=== PATIENT | female | born 1950 | race Caucasian/White ===

== ENCOUNTER → 2018-09-18 | Outpatient (CLI) | payer BC ==
--- NOTE | 2018-09-19 13:24 | MM ---
Reason for exam: screening (asymptomatic). Last mammogram was performed 1 year and 11 months ago. History: Patient is postmenopausal, history of other cancer, and had first child at age 41. Physical Findings: A clinical breast exam by your physician is recommended on an annual basis and results should be correlated with mammographic findings. MG 3D Screening Mammo W/Cad Bilateral CC and MLO view(s) were taken. Prior study comparison: October 11, 2016, bilateral MG screening mammo w CAD. November 13, 2013, bilateral digital screening mammo w/CAD. The breast tissue is heterogeneously dense. This may lower the sensitivity of mammography. There is no discrete abnormality. No significant changes when compared with prior studies. ASSESSMENT: Negative, BI-RAD 1 RECOMMENDATION: Routine screening mammogram of both breasts in 1 year.
== END | disposition home or self-care (01) ==
LOC: RADMAMWWP 14:44
PROVIDERS: ATTEND Obstetrics & Gynecology
DX: Z12.31 Encounter for screening mammogram for malignant neoplasm of breast (principal)
CPT/HCPCS: 77063; 77067

== ENCOUNTER → 2020-01-27 | Outpatient (CLI) | payer BC ==
--- NOTE | 2020-01-28 11:20 | MM ---
Reason for exam: screening (asymptomatic). Last mammogram was performed 1 year and 4 months ago. History: Patient is postmenopausal, history of other cancer, and had first child at age 41. Physical Findings: A clinical breast exam by your physician is recommended on an annual basis and results should be correlated with mammographic findings. MG 3D Screening Mammo W/Cad Bilateral CC and MLO view(s) were taken. Prior study comparison: September 18, 2018, bilateral MG 3d screening mammo w/cad. October 11, 2016, bilateral MG screening mammo w CAD. The breast tissue is heterogeneously dense. This may lower the sensitivity of mammography. There is no discrete abnormality. ASSESSMENT: Negative, BI-RAD 1 RECOMMENDATION: Routine screening mammogram of both breasts in 1 year.
== END | disposition home or self-care (01) ==
LOC: RADMAMWWP 10:52
PROVIDERS: ATTEND Obstetrics & Gynecology
DX: Z12.31 Encounter for screening mammogram for malignant neoplasm of breast (principal)
CPT/HCPCS: 77063; 77067

== ENCOUNTER → 2021-09-23 | Outpatient (CLI) | payer MEDICARE ==
--- NOTE | 2021-09-27 08:04 | MM ---
Reason for exam: screening (asymptomatic). Last mammogram was performed 1 year and 8 months ago. History: Patient is postmenopausal, history of other cancer, and had first child at age 41. Taking other hormone for 3 months. Physical Findings: A clinical breast exam by your physician is recommended on an annual basis and results should be correlated with mammographic findings. MG 3D Screening Mammo W/Cad Bilateral CC and MLO view(s) were taken. Prior study comparison: January 27, 2020, bilateral MG 3d screening mammo w/cad. September 18, 2018, bilateral MG 3d screening mammo w/cad. October 11, 2016, bilateral MG screening mammo w CAD. The breast tissue is heterogeneously dense. This may lower the sensitivity of mammography. No significant changes when compared with prior studies. ASSESSMENT: Negative, BI-RAD 1 RECOMMENDATION: Routine screening mammogram of both breasts in 1 year.
== END | disposition home or self-care (01) ==
LOC: RADMAMWWP 16:13
PROVIDERS: ATTEND Family Medicine
DX: Z12.31 Encounter for screening mammogram for malignant neoplasm of breast (principal)
CPT/HCPCS: 77063; 77067

== ENCOUNTER → 2021-11-23 | Outpatient (CLI) | payer MEDICARE ==
--- NOTE | 2021-11-23 10:17 | XR ---
EXAMINATION TYPE: XR cervical spine comp DATE OF EXAM: 11/23/2021 CLINICAL HISTORY: pain COMPARISON: NONE TECHNIQUE: Frontal, lateral, oblique, swimmers, and open mouth view of the cervical spine are obtaine d. FINDINGS: The cervical spine is visualized in its entirety from C1 thru the top of T1 level. It is s atisfactory in alignment without evidence of acute fracture or dislocation. The pre-vertebral soft t issue appears within normal limits. Moderate to severe degenerative disc space narrowing C3-4 through C6-7. Ventral and dorsal spondylosis noted. The C1-C2 articulation is unremarkable on the open mouth view. The oblique images are within normal limits. IMPRESSION: No acute fracture or dislocation is seen in the cervical spine.ICD 10 NO FRACTURE, INITI AL EVALUATION
== END | disposition home or self-care (01) ==
LOC: RADXRMAIN 09:48
PROVIDERS: ATTEND Family Medicine
DX: M54.2 Cervicalgia (principal)
CPT/HCPCS: 72050

== ENCOUNTER 2021-12-01 09:21 | Day surgery (SDC) | payer MEDICARE ==
[2021-11-28 13:55] VITALS: BMI 24.7
[~2021-12-01 09:21] MED LIST: LACTATED RINGERS 1,000 ML IV SCH; LIDOCAINE 1% (10MG/ML) FOR IV START INTRADERMA PRN
[2021-12-01 10:29] VITALS: TEMP 98.4
[2021-12-01] MEDS ORDERED: PROPOFOL 10 MG/ML 20 ML VIAL IV ONE (11:05)
[2021-12-01] MEDS ORDERED: LIDOCAINE 1% INJ 10MG/ML (20 ML MDV) ONE (11:05)
--- NOTE | 2021-12-01 11:07 | P.GSHP ---
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 Patient has a positive colon guard test. She denies any significant GI complaints. Past Medical History Additional Past Medical History / Comment(s): DYSPHAGIA, BRONCHITS, KIDNEY STONE History of Any Multi-Drug Resistant Organisms: None Reported Past Surgical History: Tonsillectomy Additional Past Surgical History / Comment(s): RIGHT ARTHROTOMY, SINUS SURGERY, LAPAROSCOPIC SURGERY X2 Past Anesthesia/Blood Transfusion Reactions: Postoperative Nausea & Vomiting (PONV) Smoking Status: Former smoker - Past Family History Father Family Medical History: Cancer Medications and Allergies Home Medications Medication Instructions Recorded Confirmed Type Acetaminophen Tab [Tylenol Tab] 500 - 1,000 mg PO Q6H PRN 11/28/21 12/01/21 History Calcium Carbonate/Vitamin D3 2 each PO BID 11/28/21 12/01/21 History [Calcium 600 mg-D3 20 mcg (800 unit)] Cetirizine HCl [Zyrtec] 10 mg PO HS 11/28/21 12/01/21 History Cyclobenzaprine [Flexeril] 10 mg PO DAILY PRN 11/28/21 12/01/21 History Multivitamin [Multivitamins Adult 1 each PO DAILY 11/28/21 12/01/21 History Gummies] Allergies Allergy/AdvReac Type Severity Reaction Status Date / Time Milk Containing Products Allergy Rash/Hives, Verified 12/01/21 10:19 [Dairy] MIGRAINE HEADACHE,VOMITING SINUS INFECTION mold Allergy Unknown Verified 12/01/21 10:19 tree nut Allergy Anaphylaxis Verified 12/01/21 10:19 EGG WHITES Allergy Rash, Uncoded 12/01/21 10:19 migraine headache , sinus infection, vomiting Surgical - Exam Vital Signs Temp Pulse Resp BP Pulse Ox 98.4 F 69 16 153/88 100 12/01/21 10:27 12/01/21 10:27 12/01/21 10:27 12/01/21 10:27 12/01/21 10:27 - General well developed, well nourished, no distress - Eyes PERRL - ENT normal pinna - Neck no masses - Respiratory normal expansion - Cardiovascular Rhythm: regular - Abdomen Abdomen: soft, non tender Assessment and Plan Assessment: Positive colon guard test. We'll perform colonoscopy.
--- NOTE | 2021-12-01 11:30 | P.OP ---
Date of Procedure: 12/01/21 Preoperative Diagnosis: Positive colon guard test Postoperative Diagnosis: Rectal polyp Procedure(s) Performed: Colonoscopy Anesthesia: MAC Surgeon: Shahzad Minor Pathology: other (Rectal polyp) Condition: stable Disposition: PACU Description of Procedure: Patient's placed on the endoscopy table in the lateral position. She received IV sedation. Digital rectal exam was performed which revealed no abnormalities. The flexible colonoscope was then placed patient anus passed rotator colon. The ileocecal valve visualized and tortuous about. The right colon appeared normal. Transverse colon appeared normal. The descending colon appeared normal. Sigmoid colon was a few scattered diverticula. In the rectum there was a polyp seen this removed with snare. Scope was withdrawn for patient.
[2021-12-01 12:19] VITALS: BP 118/78; PULSE 82; RESP 18
== END 2021-12-01 12:20 | disposition home or self-care (01) ==
LOC: ORWHC2ENDO 09:21
PROVIDERS: ATTEND Surgery
DX: K62.1 Rectal polyp (principal); Z87.891 Personal history of nicotine dependence; Z80.9 Family history of malignant neoplasm, unspecified
CPT/HCPCS: 45385; 88305; J2001; J2704

== ENCOUNTER → 2022-08-24 | Outpatient (CLI) | payer MEDICARE ==
--- NOTE | 2022-08-25 06:05 | MR ---
EXAMINATION TYPE: MR knee LT wo con DATE OF EXAM: 08/24/2022 COMPARISON: Outside right knee x-ray August 22, 2022 HISTORY: Right knee pain and swelling, history of prior surgery TECHNIQUE: Multiplanar, multisequence imaging of the right knee is performed without IV contrast. FINDINGS: MEDIAL MENISCUS: Some increased linear horizontal signal centrally in the posterior horn does not ext end to articular surface. LATERAL MENISCUS: Vertical oriented increased signal anterior horn extends to articular surface sagit mark image 7. CRUCIATE LIGAMENTS: The posterior cruciate ligament is intact and unremarkable. Increased signal thro ughout the anterior cruciate ligament COLLATERAL LIGAMENTS: The medial collateral ligament and lateral collateral ligament complex are inta ct and unremarkable. EXTENSOR MECHANISM: Visualized quadriceps and patellar tendons are intact. EFFUSION: Small to moderate size suprapatellar joint effusion. POPLITEAL CYST: Small size popliteal/morales cyst. TRICOMPARTMENT SPACES: Moderate to severe narrowing patellofemoral and medial tibiofemoral compartmen ts. Mild tricompartmental spurring. CARTILAGE: Significant chondromalacia patella with diffuse cartilaginous loss along posterior patella r pole and areas of full-thickness cartilaginous loss seen. Cartilaginous loss medial tibiofemoral co mpartment also identified. BONE MARROW SIGNAL: Areas of heterogeneous diminished T1 and increased T2 signal inferior lateral pat benita as site of most prominent patellofemoral compartment joint space loss with some increased T2 sig nal in the adjacent anterior lateral femoral condyle. Subchondral cystic change and reactive edema is favored. There is serpiginous low T1 signal in the medial tibial plateau coronal image 18 and sagittal image 2 0 measuring 1.8 cm in length with surrounding T2 hyperintensity consistent with subchondral fracture injury and associated surrounding osseous edema. OTHER: No additional significant abnormality is appreciated. IMPRESSION: 1. Full thickness vertical tear anterior horn lateral meniscus. 2. Moderate to severe patellofemoral and medial tibiofemoral joint degenerative changes as detailed a anika. 3. Subchondral deficiency fracture medial tibial plateau with surrounding osseous edema. 4. Small to moderate size suprapatellar joint effusion. 5. Intrasubstance tear posterior horn medial meniscus. 6. Small sized popliteal cyst. 7. Partial tearing of the anterior cruciate ligament. 4.
== END | disposition home or self-care (01) ==
LOC: RADMRIMAIN 15:51
PROVIDERS: ATTEND Orthopaedic Surgery
DX: S82.132A Displaced fracture of medial condyle of left tibia, initial encounter for closed fracture (principal); M23.242 Derangement of anterior horn of lateral meniscus due to old tear or injury, left knee

== ENCOUNTER → 2022-10-31 | Outpatient (CLI) | payer MEDICARE ==
--- NOTE | 2022-11-01 09:18 | MM ---
Reason for Exam: Screening (asymptomatic). Last mammogram was performed 1 year(s) and 2 month(s) ago. Patient History: Menarche at age 14. First Full-Term at age 41. Late child-bearing (after 30). Postmenopausal. Risk Values: Piper 5 year model risk: 2.4%. NCI Lifetime model risk: 7.3%. Prior Study Comparison: 09/18/2018 Bilateral Screening Mammogram, [facility]. 01/27/2020 Bilateral Screening Mammogram, [facility]. 09/23/2021 Bilateral Screening Mammogram, [facility]. Tissue Density: The breast tissue is heterogeneously dense. This may lower the sensitivity of mammography. Findings: Analyzed By CAD. Benign-appearing bilateral axillary lymph nodes are redemonstrated. There is no suspicious new group of microcalcifications or new suspicious mass in either breast. Overall Assessment: Negative, BI-RAD 1 Management: Screening Mammogram of both breasts in 1 year. Some advise bilateral breast ultrasound surveillance in patients with background dense tissue. A clinical breast exam by your physician is recommended on an annual basis and results should be correlated with mammographic findings. Electronically signed and approved by: Mainor Peterson M.D.
== END | disposition home or self-care (01) ==
LOC: RADMAMWWP 15:37
PROVIDERS: ATTEND Family Medicine
DX: Z12.31 Encounter for screening mammogram for malignant neoplasm of breast (principal); Z78.0 Asymptomatic menopausal state
CPT/HCPCS: 77063; 77067

== ENCOUNTER → 2022-10-31 | Outpatient (CLI) | payer MEDICARE ==
[2022-10-31 22:46] LABS: Anion Gap 11.6 mmol/L (10.00-18.00); Carbon Dioxide 27.6 mmol/L (20.0-27.5); Potassium 4.1 mmol/L (3.5-5.5)
[2022-10-31 22:48] LABS: Basophils # (A) 0.05 X 10*3/uL (0.00-0.10); Basophils % (A) 0.6 %; Eosinophils # (A) 0.05 X 10*3/uL (0.04-0.35); Eosinophils % (A) 0.6 %; HCT 43.6 % (37.2-46.3); Immature Grans, Automated 0.4 %; Lymphocytes # (A) 1.54 X 10*3/uL (0.90-5.00); Lymphocytes % (A) 18.7 %; MCH 29.9 pg (27.0-32.0); MCHC 32.1 g/dL (32.0-37.0); Mean Platelet Volume 10.1 fL (9.5-12.2); Monocytes # (A) 0.42 X 10*3/uL (0.20-1.00); Monocytes % (A) 5.1 %; NRBC Per 100 WBC 0 /100 WBCS (0.0-0.0); Neutrophils # (A) 6.13 X 10*3/uL (1.80-7.70); Neutrophils % (A) 74.6 %; Platelet Count 230 X 10*3/uL (140-440); RBC 4.69 X 10*6/uL (4.10-5.20); WBC 8.22 X 10*3/uL (4.50-10.00)
== END | disposition home or self-care (01) ==
LOC: LABPAT 14:48
PROVIDERS: ATTEND Orthopaedic Surgery
DX: Z01.818 Encounter for other preprocedural examination (principal); I44.4 Left anterior fascicular block; M23.92 Unspecified internal derangement of left knee; R94.31 Abnormal electrocardiogram [ECG] [EKG]
CPT/HCPCS: 80051; 85025; 93005

== ENCOUNTER → 2022-11-08 | Day surgery (SDC) | payer MEDICARE ==
[2022-11-03 14:03] VITALS: BMI 22.8
[~2022-11-08] MED LIST changes: +BUPIVACAINE (PF) 0.25% 30 ML VIAL SQ ONE; +DEXAMETHASONE SOD PHOSPHATE 4 MG/ML 1 ML VIAL IV ONE; +DEXAMETHASONE SOD PHOSPHATE 4 MG/ML 1 ML VIAL IVP ONE; +HYDROmorphone 0.5 MG/0.5 ML SYRINGE IVP PRN; +LACTATED RINGERS 1,000 ML IV ONE; +LIDOCAINE 2% INJ 20 MG/ML (2 ML VIAL) ONE; +MIDAZOLAM 2 MG/2 ML VIAL IV PRN; +MIDAZOLAM 2 MG/2 ML VIAL ONE; +ONDANSETRON 4 MG/2 ML VIAL IVP ONE; +PHENYLEPHRINE-0.9% NACL SYG 1,000 MCG/10 ML SYRINGE ONE; +SUCCINYLCHOLINE CHLORIDE 200 MG/10 ML VIAL IV ONE; +fentaNYL (PF) 50 MCG/ML 2 ML AMP ONE
--- NOTE | 2022-11-08 01:43 | HP ---
HISTORY AND PHYSICAL DATE OF SURGERY: 11/08/2022 HISTORY OF PRESENT ILLNESS: Anuradha Ramos is a 72-year-old patient seen with progressive left knee pain. After having treatment options discussed, she elected to proceed with left knee arthroscopy. Consent was obtained. PAST MEDICAL HISTORY: Noncontributory. SURGICAL HISTORY: Carpal tunnel surgery, knee arthroscopy, tonsillectomy, sinus surgery. DAILY MEDICATIONS: 1. Motrin. 2. Zyrtec. ALLERGIES: None. SOCIAL HISTORY: She denies tobacco use. PHYSICAL EVALUATION OF THE LEFT KNEE: Her range of motion is 0-130. Mild effusion. Tenderness along the medial and lateral joint lines. Positive medial Danuta's. Positive lateral Danuta's. Ligaments stable. Hip rotation without pain. Distal neurovascular exam intact. RADIOGRAPHS: Right knee radiographs revealed mild to medial and moderate patellofemoral compartment osteoarthritis. MRI left knee revealed a lateral meniscal tear, effusion, and osteoarthritic changes. IMPRESSION: Internal derangement of left knee with lateral meniscal tear. PLAN: Left knee arthroscopy with partial lateral meniscectomy and debridement. MMODL / IJN: [id number] /
--- NOTE | 2022-11-08 12:19 | P.OP ---
Date of Procedure: 11/08/22 Preoperative Diagnosis: Internal derangement left knee Postoperative Diagnosis: 1. Tear medial and lateral meniscus left knee 2. Grade 2/3 chondromalacia medial femoral condyle left knee 3. Reactive synovitis medial, lateral and suprapatellar compartments left knee Procedure(s) Performed: 1. Arthroscopic partial medial and lateral meniscectomy left knee 2. Arthroscopic chondroplasty medial femoral condyle left knee 3. Arthroscopic partial synovectomy medial, lateral and suprapatellar compartments left knee Anesthesia: KALEYA, local Surgeon: Gael Balderas Estimated Blood Loss (ml): 7 Pathology: none sent Condition: stable Disposition: PACU Indications for Procedure: 72-year-old patient seen with progressive left knee pain. After having treatment options discussed, she elected to proceed with arthroscopy. Operative Findings: See description of procedure Description of Procedure: Patient was taken to the operative suite. Patient underwent a general anesthetic by the department of anesthesia. Patient was given preoperative antibiotics. The left lower extremity was placed in a well-padded arthroscopic leg stroud. The left leg was prepped and draped in the normal sterile orthopedic fashion. A lateral parapatellar and suprapatellar incision was made. Trochars were inserted. Arthroscopy was initiated. Suprapatellar pouch revealed diffuse thick reactive synovitis. The patellofemoral joint appeared to articulate congruently. There was grade 2 chondromalacia of the patella without osteochondral tears being present. The scope was guided into the medial gutter. No loose bodies or plica were identified. The scope was then guided into the medial compartment. A medial parapatellar incision was made. Trocar inserted followed by probe. There was a tear involving the posterior horn of the medial meniscus at the root. There was an area of grade 2/3 chondromalacia medial femoral condyle with some osteochondral flap tears. There was some thick reactive synovitis anteriorly. I performed a partial medial meniscectomy getting down to stable meniscal tissue. I performed a chondroplasty of the medial femoral condyle getting down to stable osteochondral tissue. I performed a partial synovectomy decompressing the reactive synovitis. The residual meniscus was stable. The residual osteochondral surface appeared stable. There was good decompression of the synovitis. Scope and probe were then guided into the intercondylar notch. Cruciates were identified, probed and found to be stable. The scope and probe were then guided into lateral compartment. There was a radial tear mid body lateral meniscus. There were grade 2 chondromalacia changes of the lateral femoral condyle without osteochondral tears. There was some thick reactive synovitis anteriorly. I performed a partial lateral meniscectomy. I performed a partial synovectomy. The residual meniscus was stable. There was good decompression of the synovitis. The scope was in guided back into the suprapatellar compartment. I introduced a motorize shaver into the suprapatellar compartment. I debrided some piecemeal fragments of meniscus I encountered. I performed a partial synovectomy. The shaver was removed. There was good decompression of the synovitis. Instruments were now removed from the joint. The joint was infiltrated with .25% Marcaine. Steri-Strips were applied to the portal sites. Sterile dressings were applied. The patient was placed into a TAISHA hose. No tourniquet was utilized. The patient was awakened, transferred to a bed and taken to recovery stable satisfactory condition.
[2022-11-08 12:25] VITALS: TEMP 96.9
[2022-11-08 12:32] VITALS: BP 114/71; PULSE 70; RESP 16
== END | disposition home or self-care (01) ==
LOC: OR 09:38
PROVIDERS: ATTEND Orthopaedic Surgery
DX: M23.92 Unspecified internal derangement of left knee (principal); S83.282A Other tear of lateral meniscus, current injury, left knee, initial encounter; M94.262 Chondromalacia, left knee; M65.9 Synovitis and tenosynovitis, unspecified; Z98.890 Other specified postprocedural states; Z90.89 Acquired absence of other organs; Z79.899 Other long term (current) drug therapy
CPT/HCPCS: 29880; J2250; J0330; J1100; J2405; J0690; J3010; J2370; J2001

== ENCOUNTER → 2023-12-10 | Outpatient (CLI) | payer MEDICARE ==
--- NOTE | 2023-12-10 11:51 | BD ---
EXAMINATION TYPE: Axial Bone Density DATE OF EXAM: 12/10/2023 CLINICAL HISTORY: 73 years old Female. ICD-10 CODE: Z78.0 ASYMPTOMATIC MENOPAUSAL Height: 61.5 in Weight: 130 lbs FRAX RISK QUESTIONS: Family History (Parent hip fracture): yes mother and father RISK FACTORS HISTORY OF: Active: yes Diet low in dairy products/other sources of calcium: yes Postmenopausal woman: age 50 MEDICATIONS: Additional Medications: calcium, antihistamine, vit d, EXAM MEASUREMENTS: Bone mineral densitometry was performed using the [employer] System. Bone mineral density as measured about the Lumbar spine is: ----- L1-L4(G/cm2): 0.790 T Score Values are as follows: ----- L1: -3.1 ----- L2: -3.5 ----- L3: -3.0 ----- L4: -3.6 ----- L1-L4: -3.3 Z Score Values are as follows: ----- L1: -1.2 ----- L2: -1.6 ----- L3: -1.1 ----- L4: -1.7 ----- L1-L4: -1.4 Bone mineral density baseline Bone mineral density about the R hip (g/cm2): 0.742 Bone mineral density about the L hip (g/cm2): 0.694 T Score values are as follows: -----R Neck: -2.6 -----L Neck: -3.0 -----R Total: -2.1 -----L Total: -2.5 Z Score values are as follows: -----R Neck: -0.7 -----L Neck: -1.1 -----R Total: -0.4 -----L Total: -0.8 Bone mineral density baseline FRAX%s: The graph provided illustrates a 31.5% chance for a major osteoporotic fx and a 15.3% chance for the hips probability for fx in 10 years time. IMPRESSION: Osteoporosis (T Score less than -2.5). There is increased fracture risk and therapy is usually indicated based on age. Re-Screen 1-2 years. NOTE: T-SCORE=SD OF THE YOUNG ADULT MEAN.
--- NOTE | 2023-12-11 09:36 | MM ---
Reason for Exam: Screening (asymptomatic). Last mammogram was performed 1 year(s) and 1 month(s) ago. Patient History: Menarche at age 14. First Full-Term at age 41. Late child-bearing (after 30). Postmenopausal. Risk Values: Piper 5 year model risk: 2.4%. NCI Lifetime model risk: 6.6%. Prior Study Comparison: 01/27/2020 Bilateral Screening Mammogram, [facility]. 09/23/2021 Bilateral Screening Mammogram, [facility]. 10/31/2022 Bilateral MG 3D screening mammo w/cad, [facility]. Tissue Density: The breast tissue is heterogeneously dense. This may lower the sensitivity of mammography. Findings: Analyzed By CAD. There is no suspicious group of microcalcifications or new suspicious mass. Overall Assessment: Negative, BI-RAD 1 Management: Screening Mammogram of both breasts in [address] [facility] will attempt to contact patient to return for supplemental views and ultrasound if indicated. Patient should continue monthly self-breast exams. A clinical breast exam by your physician is recommended on an annual basis. This exam should not preclude additional follow-up of suspicious palpable abnormalities. Note on Piper scores and lifetime risk: 1. A Piper score greater than 3% is considered moderate risk. If this is the case, consider specialist referral to assess eligibility for a risk reducing agent. 2. If overall lifetime risk for the development of breast cancer is 20% or higher, the patient may qualify for future screening with alternating mammogram and breast MRI. Electronically signed and approved by: Herbert Vasquez DO
== END | disposition home or self-care (01) ==
LOC: RADMAMWWP 09:59
PROVIDERS: ATTEND Family Medicine
DX: Z12.31 Encounter for screening mammogram for malignant neoplasm of breast (principal); M81.0 Age-related osteoporosis without current pathological fracture; Z78.0 Asymptomatic menopausal state
CPT/HCPCS: 77063; 77067; 77080

== ENCOUNTER → 2025-02-04 | Outpatient (CLI) | payer MEDICARE ==
--- NOTE | 2025-02-04 15:05 | MM ---
Reason for Exam: Screening (asymptomatic). Last mammogram was performed 1 year(s) and 2 month(s) ago. Patient History: Menarche at age 14. First Full-Term at age 41. Late child-bearing (after 30). Postmenopausal. Risk Values: Piper 5 year model risk: 2.4%. NCI Lifetime model risk: 6.3%. Prior Study Comparison: 09/23/2021 Bilateral Screening Mammogram, [facility]. 10/31/2022 Bilateral MG 3D screening mammo w/cad, [facility]. 12/10/2023 Bilateral MG 3D screening mammo w/cad, [facility]. Tissue Density: The breasts are heterogeneously dense, which may obscure small masses. Findings: Analyzed By CAD. There is no suspicious group of microcalcifications or new suspicious mass in either breast. Overall Assessment: Negative, BI-RAD 1 Management: Screening Mammogram of both breasts in 1 year. . Patient should continue monthly self-breast exams. A clinical breast exam by your physician is recommended on an annual basis. This exam should not preclude additional follow-up of suspicious palpable abnormalities. Note on Piper scores and lifetime risk: 1. A Piper score greater than 3% is considered moderate risk. If this is the case, consider specialist referral to assess eligibility for a risk reducing agent. 2. If overall lifetime risk for the development of breast cancer is 20% or higher, the patient may qualify for future screening with alternating mammogram and breast MRI. [facility], , 02/04/2025 3:02 PM. Electronically signed and approved by: Harpreet Garibay M.D. Radiologis
== END | disposition home or self-care (01) ==
LOC: RADMAMWWP 13:45
PROVIDERS: ATTEND Family Medicine
DX: Z12.31 Encounter for screening mammogram for malignant neoplasm of breast (principal); R92.333 Mammographic heterogeneous density, bilateral breasts; Z78.0 Asymptomatic menopausal state
CPT/HCPCS: 77063; 77067